=== PATIENT | female | born 1950 | race African-American/Black ===

== ENCOUNTER 2017-10-29 06:24 | Day surgery (SDC) | payer BC ==
[2017-10-29] VITALS (10 sets, daily range): BP systolic 110–140; BP diastolic 64–79
[~2017-10-29] VITALS: Ht 162.6 cm; Wt 60.3 kg
[~2017-10-29 06:24] MED LIST: AMLODIPINE BESY10 MG ORAL; ASPIR 8181 MG ORAL; MIRTAZAPINE15 M3 ORAL; MULTIVITAMINS1 EAC2 ORAL; SERTRALINE HCL50 MG ORAL; VITAMIN D1000 UNI1 ORAL; ZYPREXA10 MG ORAL
[2017-10-29] MEDS ORDERED: fentaNYL 100 mcg/2 mL IV ONE (06:25)
[2017-10-29] MEDS ORDERED: Midazolam 2mg/2ml Inj ONE (06:25)
--- NOTE | 2017-10-29 06:35 | Anethesia Preoperative Eval ---
RODY REAVES 10/29/17 0635: Anesthesia Pre-op PMH/ROS General Date of Evaluation: Oct 29, 2017 Time of Evaluation: 06:33 Anesthesiologist: shonna ASA Score: ASA 3 Mallampati Score Class I : Soft palate, uvula, fauces, pillars visible Class II: Soft palate, uvula, fauces visible Class III: Soft palate, base of uvula visible Class IV: Only hard plate visible Surgeon: jennifer Diagnosis: blood in stool Surgical Procedure: egd/colonoscopy Anesthesia History: none Family History: no anesthesia problems Allergies: Coded Allergies: No Known Allergies (Unverified , 10/26/17) Medications: see eMAR Past Medical History Cardiovascular: Reports: HTN Gastrointestinal/Genitourinary: Reports: other - blood in stool Neurologic/Psychiatric: Reports: depression/anxiety HEENT: Reports: cataract (L), cataract (R) Hematology/Immune: Reports: anemia PSxH Narrative: partial hysterectomy Anesthesia Pre-op Phys. Exam Physician Exam Constitutional: NAD Neurologic: CN 2-12 intact Cardiovascular: RRR Respiratory: CTA Gastrointestinal: S/NT/ND Airway Exam Mallampati Score: Class II MO: limited Neck: supple TMD: 2fb ROM: limited Anesthesia Pre-op A/P Risk Assessment & Plan Assessment: asa3 Plan: mac Status Change Before Surgery: No Pre-Antibiotics Drug: KATHY Syed M.D. 10/29/17 0742: Anesthesia Pre-op PMH/ROS General Date of Evaluation: Oct 29, 2017 Time of Evaluation: 07:08 Anesthesiologist: Anamaria ASA Score: ASA 2 Mallampati Classification: Class II Surgeon: Lee Diagnosis: Abdominal pain Surgical Procedure: EGD colonosvopy Anesthesia History: none Family History: no anesthesia problems Allergies: Coded Allergies: No Known Allergies (Unverified , 10/26/17) Medications: see eMAR Past Medical History Cardiovascular: Reports: HTN; Denies: CAD, [place], valve dz, arrhythmia, other Pulmonary: Denies: asthma, COPD, XUAN, other Gastrointestinal/Genitourinary: Reports: GERD; Denies: CRI, ESRD, other Neurologic/Psychiatric: Reports: depression/anxiety; Denies: dementia, CVA, TIA, other Endocrine: Denies: DM, hypothyroidism, steroids, other HEENT: Denies: cataract (L), cataract (R), glaucoma, [place] (L), [place] (R), other Hematology/Immune: Denies: anemia, DVT, bleeding disorder, other Musculoskeletal/Integumentary: Denies: OA, RA, DJD, DDD, edema, other PSxH Narrative: see H& P Anesthesia Pre-op Phys. Exam Physician Exam Constitutional: NAD Neurologic: CN 2-12 intact Cardiovascular: RRR, no M/R/G Respiratory: CTA Gastrointestinal: S/NT/ND Airway Exam Mallampati Score: Class II MO: full ROM: full Teeth: missing Dentures: no upper, no lower Anesthesia Pre-op A/P Labs see chart Risk Assessment & Plan Assessment: ASA 2 Plan: MAC Status Change Before Surgery: No Pre-Antibiotics Drug: none RODY REAVES Oct 29, 2017 06:35 KATHY WALLACE M.D. Oct 29, 2017 07:42
[2017-10-29] MEDS ORDERED: fentaNYL 100 mcg/2 mL IV PRN ×2 (06:45→07:45)
[2017-10-29] MEDS ORDERED: Midazolam 2mg/2ml Inj IVP PRN (06:45)
[2017-10-29] MEDS ORDERED: DiphenhydrAMINE 50mg/ml Inj IVP PRN (06:45)
[2017-10-29] MEDS ORDERED: Atropine Inj 1mg/10ml Syr IV PRN (06:45)
--- NOTE | 2017-10-29 07:15 | Pre-Procedure Note/Attestation ---
Pre-Procedure Note/Attestation Complete Prior to Procedure Planned Procedure: not applicable Procedure Narrative: esophagogastroduodenoscopycolon Indications for Procedure Pre-Operative Diagnosis: Heme (+) Attestation I attest that I discussed the nature of the procedure; its benefits; risks and complications; and alternatives (and the risks and benefits of such alternatives ), prior to the procedure, with the patient (or the patient's legal field marketing representative). I attest that, if there was a reasonable possibility of needing a blood transfusion, the patient (or the patient's legal field marketing representative) was given the [facility] standardized written summary, pursuant to the [place]aveed [place]on Blood Safety Act ([place] Health and Safety Code # 1645, as amended). I attest that I re-evaluated the patient just prior to the surgery and that there has been no change in the patient's H&P, except as documented below: MALLY MONTENEGRO Oct 29, 2017 07:15
[2017-10-29] MEDS ORDERED: LR 1000ml 1,000 ML IVLG SCH (07:42)
--- NOTE | 2017-10-29 08:11 | Immediate Post-Op Evaluation ---
Immediate Post-Op Evalulation Immediate Post-Op Evalulation Procedure: EGD Colonoscopy Date of Evaluation: Oct 29, 2017 Time of Evaluation: 08:10 IV Fluids: 600 Blood Products: none Estimated Blood Loss: none Urinary Output: none Blood Pressure Systolic: 111 Blood Pressure Diastolic: 68 Pulse Rate: 80 Respiratory Rate: 20 O2 Sat by Pulse Oximetry: 99 Temperature (Fahrenheit): 97.6 Pain Score (1-10): 1 Nausea: No Vomiting: No Complications none Patient Status: awake, patent, none Hydration Status: adequate KATHY WALLACE M.D. Oct 29, 2017 08:11
--- NOTE | 2017-10-29 09:21 | 48 Hour Post Anesthesia Eval ---
Post Anesthesia Evaluation Procedure: EGD Colonoscopy Date of Evaluation: Oct 29, 2017 Time of Evaluation: 09:20 Blood Pressure Systolic: 128 0: 75 Pulse Rate: 68 Respiratory Rate: 20 Temperature (Fahrenheit): 98.1 O2 Sat by Pulse Oximetry: 98 Airway: patent Nausea: No Vomiting: No Pain Intensity: 1 Hydration Status: adequate Cardiopulmonary Status: stable Mental Status/LOC: patient returned to baseline Follow-up Care/Observations: n/a Post-Anesthesia Complications: none Follow-up care needed: ready to discharge KATHY WALLACE M.D. Oct 29, 2017 09:21
--- NOTE | 2017-10-29 09:29 | Endoscopy Procedure Note ---
Endoscopy Procedure Note General Indication for Procedure: OB (+) Procedures Performed: EGD, colonoscopy Operative Findings/Diagnosis: gastritis, dim polyp, HH, mild Proctitis Specimen: yes Pt Tolerated Procedure Well: Yes Estimated Blood Loss: none Anesthesia Anesthesiologist: see notes Anesthesia: MAC Medications Medication Given: see anesthesia record Inserted Devices Implant(s) used?: No Quality Quality of Bowel Preparation: Good GI Core Measures 50 yrs or older w/o bx or poly: Not Applicable 10yrs. F/U not recommended: Not Applicable If not recommended, why?: MALLY MONTENEGRO Oct 29, 2017 09:29
--- NOTE | 2017-10-29 09:42 | Brief Operative Note ---
Immediate Post Operative Note Operative Note Chief Complaint: heme (+) Pre-op Diagnosis: Heme (+) Procedure: EGD/Bx, colon / bx Post-op Diagnosis: gastritis, HH, normal TI, dim sigmoid polyp, mild distal rectal erythema Surgeon: jennifer Anesthesiologist: see record Anesthesia: moderate sedation Specimen: yes Complications: none Condition: stable Fluids: recorded Estimated Blood Loss: none Drains: none Implant(s) used?: No MALLY MONTENEGRO Oct 29, 2017 09:42
--- NOTE | 2017-10-29 09:43 | Short Stay Surgery H&P ---
History of Present Illness History of Present Illness Chief Complaint see typed H&P HPI Crys Quinonez is a 67 year old female who was admitted on for Blood In Stool Patient History Allergies: Coded Allergies: No Known Allergies (Unverified , 10/26/17) Medication History Scheduled Amlodipine Besylate* (Amlodipine Besylate*), 10 MG ORAL DAILY, (Reported) Aspirin* (Aspir 81*), 81 MG ORAL DAILY, (Reported) Cholecalciferol (Vitamin D3)* (Vitamin D*), 1,000 UNIT ORAL DAILY, (Reported) Mirtazapine* (Mirtazapine*), 30 MG ORAL BEDTIME, (Reported) Multivitamins* (Multivitamins*), 1 TAB ORAL DAILY, (Reported) Olanzapine* (Zyprexa*), 15 MG ORAL DAILY, (Reported) Sertraline Hcl* (Zoloft*), 50 MG ORAL DAILY, (Reported) Physical Exam Vital Signs Last Vital Signs Date Time Temp Pulse Resp B/P (MAP) Pulse Ox O2 Delivery O2 Flow Rate FiO2 10/29/17 09:21 208.6 68 20 98 10/29/17 09:00 117/72 Room Air 10/29/17 08:10 3.0 Plan Attestation Are the patient's medical conditions optimized for surgery? MALLY MONTENEGRO Oct 29, 2017 09:43
--- NOTE | 2017-10-30 11:15 | Operative Note - Dictated ---
DATE OF OPERATION: 10/29/2017 PROCEDURE: Upper gastrointestinal endoscopy with biopsy as well as colonoscopy with biopsy. SURGEON: Sanjuana Copeland M.D. ANESTHESIA: Please see the separate anesthesiologist notes for details. PRE-ENDOSCOPIC DIAGNOSIS: Heme-positive stools. POST-ENDOSCOPIC DIAGNOSES: 1. A 2 cm hiatal hernia. 2. Mild erosive gastritis, status post biopsy of the antrum. 3. Diminutive sigmoid polyp, status post biopsy removal. 4. Normal terminal ileum. 5. Mild distal rectal erythema, possibly representing preparation artifact, status post biopsy. 6. No evidence of ulcers or cancer identified. DESCRIPTION OF PROCEDURE: The procedure, its risks, indications, alternatives, and possible complications were explained to the patient and informed consent was obtained. The patient was then sedated in the left lateral decubitus position. A diagnostic upper endoscope was introduced through the oropharynx and advanced to the duodenum without difficulty. The endoscope was then gradually withdrawn. Then the mucosa examined carefully. Examination of the upper gastric mucosa revealed an incidental hiatal hernia. There was no reflux or any ulcers in the esophagus. The stomach showed some erosive gastritis in the distal portion with small bits of blood seen. Biopsy of the antrum was sent to pathology for review. A fredi ulceration however was not identified. The duodenum was unremarkable. The endoscope was removed. The rectal exam was done and the colonoscope was introduced in the rectum and advanced to the terminal ileum for about 15 cm. The colonoscope was then gradually withdrawn and the mucosa examined carefully. Examination of the colonic mucosa revealed a diminutive polyp in the sigmoid colon, which was removed with the biopsy forceps. The terminal ileum as well as the mucosal lining of the colon was free of any evidence of inflammation or ulceration. In the distal rectum, however, there was evidence of some circumferential erythema, of unclear significance. This was felt to possibly represent preparation artifact. Biopsies of the distal rectum were sent to pathology for review. The colonoscope was removed. The patient was sent to recovery in good condition. COMPLICATIONS: None. RECOMMENDATIONS: 1. Followup biopsy results. 2. Check and treat Helicobacter pylori if positive. 3. Consider capsule endoscopy to evaluate the small intestine for pathology that could explain the patient's anemia. Thank you for asking me to participate in the care of this patient. Sanjuana Copeland M.D. DR: TAMICA JOB#: [id number] CC: Zara Irby M.D. ; FAX#: [phone] MTDD
--- NOTE | 2017-10-30 12:15 | Operative Note - Dictated ---
DATE OF OPERATION: 10/29/2017 PROCEDURE: Upper gastrointestinal endoscopy with biopsy as well as colonoscopy with biopsy. SURGEON: Sanjuana Copeland M.D. ANESTHESIA: Please see the separate anesthesiologist notes for details. PRE-ENDOSCOPIC DIAGNOSIS: Heme-positive stools. POST-ENDOSCOPIC DIAGNOSES: 1. A 2 cm hiatal hernia. 2. Mild erosive gastritis, status post biopsy of the antrum. 3. Diminutive sigmoid polyp, status post biopsy removal. 4. Normal terminal ileum. 5. Mild distal rectal erythema, possibly representing preparation artifact, status post biopsy. 6. No evidence of ulcers or cancer identified. DESCRIPTION OF PROCEDURE: The procedure, its risks, indications, alternatives, and possible complications were explained to the patient and informed consent was obtained. The patient was then sedated in the left lateral decubitus position. A diagnostic upper endoscope was introduced through the oropharynx and advanced to the duodenum without difficulty. The endoscope was then gradually withdrawn. Then the mucosa examined carefully. Examination of the upper gastric mucosa revealed an incidental hiatal hernia. There was no reflux or any ulcers in the esophagus. The stomach showed some erosive gastritis in the distal portion with small bits of blood seen. Biopsy of the antrum was sent to pathology for review. A fredi ulceration however was not identified. The duodenum was unremarkable. The endoscope was removed. The rectal exam was done and the colonoscope was introduced in the rectum and advanced to the terminal ileum for about 15 cm. The colonoscope was then gradually withdrawn and the mucosa examined carefully. Examination of the colonic mucosa revealed a diminutive polyp in the sigmoid colon, which was removed with the biopsy forceps. The terminal ileum as well as the mucosal lining of the colon was free of any evidence of inflammation or ulceration. In the distal rectum, however, there was evidence of circumferential erythema, of unclear significance. This was felt to possibly represent preparation artifact. Biopsies of the distal rectum were sent to pathology for review. The colonoscope was removed. The patient was sent to recovery in good condition. COMPLICATIONS: None. RECOMMENDATIONS: 1. Followup biopsy results. 2. Check and treat Helicobacter pylori if positive. 3. Consider capsule endoscopy to evaluate the small intestine for pathology that could explain the patient's anemia. Thank you for asking me to participate in the care of this patient. Sanjuana Copeland M.D. DR: TAMICA JOB#: [id number] CC: Zara Irby M.D. ; FAX#: [phone] MTDD
== END 2017-10-29 09:10 | disposition home or self-care (01) ==
LOC: GAS 06:24
DX: K29.70 Gastritis, unspecified, without bleeding (principal); K44.9 Diaphragmatic hernia without obstruction or gangrene; K63.5 Polyp of colon; I10 Essential (primary) hypertension; Z82.49 Family history of ischemic heart disease and other diseases of the circulatory system; Z79.82 Long term (current) use of aspirin; Z80.42 Family history of malignant neoplasm of prostate
CPT/HCPCS: 43239; 45380; J2250; J3010; 94003; 94150